=== PATIENT | male | born 1970 | race American Indian/Alaskan Native ===

== ENCOUNTER 2018-12-11 22:13 | Emergency (ER) | payer OTHER ==
[2018-12-11 22:47] VITALS: BP 113/86
--- NOTE | 2018-12-11 23:41 | XRay Report ---
RIGHT ANKLE 3 VIEWS 2314 INDICATION: right ankle pain, fall tonight, twisted ankle COMPARISON: None available. FINDINGS: Prominent lateral soft tissue swelling is seen. Mild tarsal degenerative changes are noted. A spiral fracture of the distal fibular metaphysis is seen with no displacement and only a trace of lateral angulation. No dislocation is seen. No other fractures are identified. Signer Name: Alejandro Hamilton MD Signed: 12/11/2018 11:37 PM Workstation Name: [id number]
[2018-12-12] MEDS ORDERED: NORCO 5/325 PO ONE (00:31)
[2018-12-12] MEDS ORDERED: IBUPROFEN PO ONE ×2 (00:31→00:32)
[2018-12-12] MEDS ORDERED: NORCO 5/325 ONE (00:32)
--- NOTE | 2018-12-12 01:08 | Emergency Department Report ---
ED Lower Extremity HPI - General Chief Complaint: Extremity Injury, Lower Stated Complaint: RIGHT ANKLE PAIN Time Seen by Provider: 12/12/18 01:03 Source: patient Mode of arrival: Ambulatory Limitations: No Limitations - History of Present Illness Initial Comments: This is a 48-year-old -[place]el[place] male who presents to the emergency room with right ankle pain. 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 Patient states he felt a pop. States he is unable to apply weight and there is swelling to the lateral side of right ankle. He denies numbness or tingling, paresthesias, weakness, or bruising. MD Complaint: ankle injury (right) Onset/Timin -: hour(s) Injury: Ankle: Right Type of Injury: inversion Place: work Severity: severe Severity scale (0 -10): 10 Improves With: nothing Worsens With: weight bearing, movement, palpation Context: walking Associated Symptoms: snap/pop sensation, swelling, unable to bear weight. denies: numbness, tingling - Related Data Previous Rx's Medication Instructions Recorded Last Taken Type Ibuprofen [Motrin 800 MG tab] 800 mg PO Q8HR PRN #20 tablet 12/12/18 Unknown Rx oxyCODONE /ACETAMINOPHEN [Percocet 1 tab PO Q6HR PRN #12 tablet 12/12/18 Unknown Rx 5/325] Allergies Allergy/AdvReac Type Severity Reaction Status Date / Time No Known Allergies Allergy Verified 12/12/18 00:31 ED Review of Systems ROS: Stated complaint: RIGHT ANKLE PAIN Other details as noted in HPI Constitutional: denies: chills, fever Respiratory: denies: cough, shortness of breath, wheezing Cardiovascular: denies: chest pain, palpitations Gastrointestinal: denies: abdominal pain, nausea, diarrhea Musculoskeletal: joint swelling (right ankle), arthralgia (right ankle). denies: back pain Skin: denies: rash, lesions Neurological: denies: headache, weakness, paresthesias Psychiatric: denies: anxiety, depression ED Past Medical Hx - Past Medical History Previous Medical History?: No - Surgical History Past Surgical History?: Yes Hx Appendectomy: Yes - Social History Smoking Status: Never Smoker Substance Use Type: Marijuana - Medications Home Medications: Home Medications Medication Instructions Recorded Confirmed Last Taken Type Ibuprofen [Motrin 800 MG tab] 800 mg PO Q8HR PRN #20 tablet 12/12/18 Unknown Rx oxyCODONE /ACETAMINOPHEN [Percocet 1 tab PO Q6HR PRN #12 tablet 12/12/18 Unknown Rx 5/325] ED Physical Exam - General Limitations: No Limitations General appearance: alert, in no apparent distress - Respiratory Respiratory exam: Present: normal lung sounds bilaterally. Absent: respiratory distress - Cardiovascular Cardiovascular Exam: Present: regular rate, normal rhythm. Absent: systolic murmur, diastolic murmur, rubs, gallop - GI/Abdominal GI/Abdominal exam: Present: soft, normal bowel sounds - Expanded Lower Extremity Exam Right Ankle exam: Present: tenderness (tenderness and swelling of lateral malleolus), swelling, anterior draw sign. Absent: full ROM (unable to tolerate ROM ), laceration, ecchymosis, deformity, crepidus, dislocation Foot/Toe exam: Present: normal inspection, full ROM Neuro vascular tendon exam: Present: no vascular compromise Gait: Positive: unable to bear weight - Neurological Exam Neurological exam: Present: alert, oriented X3 - Psychiatric Psychiatric exam: Present: normal affect, normal mood - Skin Skin exam: Present: warm, dry, intact, normal color. Absent: rash ED Course Vital Signs 12/11/18 22:45 Temperature 99 F Pulse Rate 75 Blood Pressure 113/86 ED Lower Extremity MDM - Radiology Data Radiology results: report reviewed RIGHT ANKLE 3 VIEWS 7227 INDICATION: right ankle pain, fall tonight, twisted ankle COMPARISON: None available. FINDINGS: Prominent lateral soft tissue swelling is seen. Mild tarsal degenerative changes are noted. A spiral fracture of the distal fibular metaphysis is seen with no displacement and only a trace of lateral angulation. No dislocation is seen. No other fractures are identified. - Medical Decision Making Patient was examined by me. Patient is nontoxic appearing and stable. Vitals are normal. Obtained x-ray of right ankle. Reviewed report with the following findings Prominent lateral soft tissue swelling is seen. Mild tarsal degenerative changes are noted. A spiral fracture of the distal fibular metaphysis is seen with no displacement and only a trace of lateral angulation. No dislocation is seen. No other fractures are identified. Given analgesics and ice applied while in the ER. A Mccool splint was applied to right lower extremity and patient given crutches with education. Nonweightbearing until follow-up with orthopedics. Start ibuprofen and Percocet. Referral to orthopedics for follow-up. Patient discharged home in stable condition. Critical care attestation.: If time is entered above; I have spent that time in minutes in the direct care of this critically ill patient, excluding procedure time. ED Disposition Clinical Impression: Acute right ankle pain Ankle fracture Qualifiers: Encounter type: initial encounter Fracture type: closed Laterality: right Qualified Code(s): S82.891A - Other fracture of right lower leg, initial encounter for closed fracture Disposition: TO HOME OR SELFCARE Is pt being admited?: No Condition: Stable Instructions: Ankle Fracture (ED), Crutch Instructions (ED), Arthralgia (ED) Additional Instructions: Do not apply weight to right lower extremity until you follow up with the orthopedic surgeon. I have provided the list of orthopedic surgeons in the referral list below. Rest. Take pain medication every 6 hours as needed for pain. Follow up with orthopedic surgeon in 2-3 days. Prescriptions: Ibuprofen [Motrin 800 MG tab] 800 mg PO Q8HR PRN #20 tablet PRN Reason: Pain , Severe (7-10) oxyCODONE /ACETAMINOPHEN [Percocet 5/325] 1 tab PO Q6HR PRN #12 tablet PRN Reason: Pain Referrals: ALEX MARY MD [Primary Care Provider] - 3-5 Days EPI BAH MD [Staff Physician] - 3-5 Days [facility] [Provider Group] - 3-5 Days [facility], [Provider Group] - 3-5 Days Forms: Work/School Release Form(ED) Time of Disposition: :13
== END 2018-12-12 01:35 | disposition home or self-care (01) ==
LOC: ED 22:13
DX: S82.891A Other fracture of right lower leg, initial encounter for closed fracture (principal); F12.10 Cannabis abuse, uncomplicated; Z79.899 Other long term (current) drug therapy; Z90.49 Acquired absence of other specified parts of digestive tract; W01.198A Fall on same level from slipping, tripping and stumbling with subsequent striking against other object, initial encounter; Y93.89 Activity, other specified; Y92.69 Other specified industrial and construction area as the place of occurrence of the external cause; Y99.8 Other external cause status

== ENCOUNTER 2019-11-26 20:07 | Emergency (ER) | payer OTHER ==
[2019-11-26 21:25] VITALS: BP 137/90
--- NOTE | 2019-11-26 22:53 | XRay Report ---
CHEST 2 VIEWS INDICATION / CLINICAL INFORMATION: right chest pain. COMPARISON: None available. FINDINGS: SUPPORT DEVICES: None. HEART / MEDIASTINUM: No significant abnormality. LUNGS / PLEURA: No significant pulmonary or pleural abnormality. No pneumothorax. ADDITIONAL FINDINGS: No significant additional findings. IMPRESSION: No acute cardiopulmonary abnormality. Signer Name: Homer Carrera MD Signed: 11/26/2019 10:49 PM Workstation Name: [id number]
== END 2019-11-27 03:11 | disposition left against medical advice (07) ==
LOC: ED 20:07
DX: R07.89 Other chest pain (principal); Z53.21 Procedure and treatment not carried out due to patient leaving prior to being seen by health care provider
CPT/HCPCS: 71046